=== PATIENT | female | born 1980 | race Caucasian/White ===

== ENCOUNTER 2016-12-14 19:54 | Emergency (ER) | payer MEDICAID ==
[~2016-12-14] VITALS: Ht 157.5 cm; Wt 77.0 kg
[~2016-12-14 19:54] MED LIST: CYCL-319 PO; IBUP800T25 PO; NAPR-260 PO; ULT50 PO
[2016-12-14 20:03] VITALS: Ht 157.5 cm; Wt 77.0 kg
[2016-12-14] MEDS ORDERED: SOD CHLORIDE 0.9% 1,000 ML IV STA (21:06)
[2016-12-14] MEDS ORDERED: ONDANSETRON 4 MG INJ IV STA (21:06)
[2016-12-14 22:13] LABS: ADD UMIC NO; URINE BILIRUBIN (Dip) NEGATIVE (NEGATIVE); URINE BLOOD (Dip) NEGATIVE (NEGATIVE); URINE COLOR LT. YELLOW (YELLOW); URINE GLUCOSE (Dip) NEGATIVE (NEGATIVE); URINE KETONES (Dip) NEGATIVE (NEGATIVE); URINE LEUKOCYTE ESTERASE (Dip) NEGATIVE (NEGATIVE); URINE NITRITE (Dip) NEGATIVE (NEGATIVE); URINE TOTAL PROTEIN (Dip) NEGATIVE (NEGATIVE); URINE UROBILINOGEN (Dip) 0.2 E.U./dL (0.1-1.0)
[2016-12-14 22:14] LABS: POTASSIUM 3.8 mmol/L (3.5-5.1)
[2016-12-14 22:16] LABS: ALBUMIN/GLOBULIN RATIO 1.19; BILIRUBIN,INDIRECT 0.2 mg/dl (0-1.1); BILIRUBIN,TOTAL 0.2 mg/dl (0.2-1.3); CREATININE 0.77 mg/dl (0.44-1.00); TOTAL PROTEIN 9.2 g/dl (6.1-8.1)
[2016-12-14 22:17] LABS: CALCIUM 9.9 mg/dl (8.4-10.2)
--- NOTE | 2016-12-14 22:29 | RADRPT ---
PROCEDURE: CT Abdomen and Pelvis without contrast. CLINICAL INDICATION: Abdominal pain and vomiting for 2 days. TECHNIQUE: A CT scan of the abdomen and pelvis was performed without intravenous contrast. Puckett l and sagittal reformatted images were generated. Images were reviewed on a high-resolution PACS wor kstation. CTDIvol: 10.54 mGy. DLP: 594.00 mGy-cm. COMPARISON: None. FINDINGS: There is mild atelectasis in both lower lobes. There is a calcified granuloma in the left lung base. Evaluation of the abdominal and pelvic viscera is limited by the lack of oral and intravenous contra st. The liver is unremarkable. The gallbladder is normal in appearance. The common bile duct is not dila pam. The spleen is not enlarged. No pancreatic lesion is identified and there is no pancreatic ducta l dilatation. The adrenal glands are unremarkable. The kidneys are normal in size. There is no perinephric fat stranding. No hydronephrosis is seen. No urinary stone is identified. The small and large bowel are normal in caliber. There is no bowel wall thickening. The appendix is normal. The urinary bladder is unremarkable. The pelvic organs are within normal limits. No lymphadenopathy is identified. There is no ascites. No pneumoperitoneum is seen. There are no art erial calcifications. No suspicious osseous lesion is idenitified. 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 IMPRESSION: 1. No inflammation, mass, or lymphadenopathy. 2. Normal appendix. 3. No obstructive uropathy or urinary stone. 4. 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 RPTAT: HTAR .Usman Yee MD, Date Time Electronically viewed and signed by .Usman Yee MD, MD on 12/14/2016 22:29 .R/
[2016-12-14 22:53] LABS: BASOPHIL # 0.1 10^3/ul (0.0-0.1); BASOPHILS % 0.6 % (0.0-2.0); EOSINOPHILS # 0.1 10^3/ul (0.0-0.5); EOSINOPHILS % 0.7 % (0.0-7.0); HEMOGLOBIN 14.8 g/dl (12.0-16.0); LYMPHOCYTES # 2.1 10^3/ul (0.8-2.9); LYMPHOCYTES % 19.9 % (15.0-51.0); MEAN CORPUSCULAR HEMOGLOBIN 29.8 pg (29.0-33.0); MEAN CORPUSCULAR HGB CONC 33.7 g/dl (32.0-37.0); MEAN CORPUSCULAR VOLUME 88.3 fl (82.0-101.0); MEAN PLATELET VOLUME 9.4 fl (7.4-10.4); MONOCYTE # 0.4 10^3/ul (0.3-0.9); MONOCYTES % 3.8 % (0.0-11.0); PLATELET COUNT 309 10^3/UL (140-440); RED BLOOD COUNT 4.98 10^6/ul (4.20-5.40); RED CELL DISTRIBUTION WIDTH 12.4 % (11.5-14.5); UNCORRECTED WBC 10.6 10^3/ul (4.8-10.8); WHITE BLOOD COUNT 10.6 10^3/ul (4.8-10.8)
[2016-12-14 22:54] LABS: CONDITION 1
[2016-12-14] MEDS ORDERED: ONDA4TAB14 PO (22:58)
[2016-12-14] MEDS ORDERED: ACET325T33 PO (22:58)
--- NOTE | 2016-12-14 23:06 | ERD ---
ER Documentation Chief Complaint Date/Time DATE: 12/14/16 TIME: 23:03 Chief Complaint MENJIVAR, AP and vomiting X 2 days, baby ASA 1930. HPI This is a 36-year-old female presenting to the emergency room complaining of headache, left upper abdominal pain and vomiting for the past 2 days. Patient states that she has vomited 12 times. She denies any diarrhea. She does not remember her last menstrual period she states that her abdominal pain is 10 out of 10. She denies fevers. She took that a baby aspirin at 1930 ROS All systems reviewed and are negative except as per history of present illness. Medications Home Meds Active Scripts Acetaminophen* (Tylenol*) 325 Mg Tablet, 2 TAB PO Q6 Y for PAIN AND OR ELEVATED TEMP, #20 TAB Prov:MILLY MCARTHUR PA-C 12/14/16 Ondansetron (Ondansetron Odt) 4 Mg Tab.rapdis, 4 MG PO Q6H Y for NAUSEA AND/OR VOMITING, #20 TAB Prov:MILLY MCARTHUR PA-C 12/14/16 Cyclobenzaprine Hcl* (Cyclobenzaprine Hcl*) 10 Mg Tablet, 10 MG PO QHS, #5 TAB Prov:JOAQUIN OLIVER PA-C 11/04/16 Naproxen* (Naprosyn*) 500 Mg Tablet, 500 MG PO BID Y for PAIN AND/OR INFLAMMATION, #30 TAB Prov:JOAQUIN OLIVER PA-C 11/04/16 Tramadol HCl (Tramadol HCl) 50 Mg Tablet, 50 MG PO Q4 Y for PAIN, #20 TAB Prov:JOAQUIN OLIVER PA-C 11/04/16 Ibuprofen* (Motrin*) 800 Mg Tab, 800 MG PO Q6H Y for PAIN AND OR ELEVATED TEMP, #30 TAB Prov:ARYA CABALLERO NP 11/03/15 Ibuprofen* (Motrin*) 800 Mg Tab, 800 MG PO Q6H Y for PAIN AND OR ELEVATED TEMP, #30 TAB Prov:ARYA CABALLERO NP 10/11/15 Tramadol HCl (Tramadol HCl) 50 Mg Tab, 50 MG PO Q6 Y for PAIN, #20 TAB Prov:EDMAR MEJIA 04/29/15 Allergies Allergies: Coded Allergies: No Known Allergy (Unverified , 10/11/15) PMhx/Soc Medical and Surgical Hx: pt denies Medical Hx, pt denies Surgical Hx Hx Alcohol Use: No Hx Substance Use: No Hx Tobacco Use: No Smoking Status: Never smoker Physical Exam Vitals Vital Signs Date Time Temp Pulse Resp B/P Pulse Ox O2 Delivery O2 Flow Rate FiO2 12/14/16 20:03 97.8 67 14 132/76 99 Physical Exam GENERAL: well-developed/well-nourished, in no apparent distress, non-toxic appearing HENT: NC/AT, moist mucous membranes EYES: Conjunctiva normal NECK: Supple, no lymphadenopathy PULM: CTA bilaterally, no rales, rhonchi, or wheezing heard CV: Normal S1S2, RRR, good capillary refill GI: Soft, non-distended, tender to palpation left upper quadrant Normal bowel sounds, no masses or organomegaly felt on exam No gross peritonitis, no bruits Negative Rovsing, negative Esteban, negative McBurney's point, Negative CVAT BACK: No masses EXT: No clubbing, cyanosis, or edema NEURO: Alert and Orientated SKIN: Intact, normal turgor PSYCH: Normal mood and mentation Result Diagram: 12/14/16214312/14/162143 Results 24 hrs Laboratory Tests Test 12/14/16 21:40 12/14/16 21:44 Urine Bilirubin NEGATIVE Urine Clarity CLEAR Urine Color LT. YELLOW Urine Glucose NEGATIVE% Urine Hemoglobin NEGATIVE Urine Ketones NEGATIVE Urine Leukocyte Esterase NEGATIVE Urine Nitrite NEGATIVE Urine Specific Jensen <=1.005 Urine Total Protein NEGATIVE Urine Urobilinogen 0.2 E.U./dL Urine pH 6.0 Alanine Aminotransferase (ALT/SGPT) 32IU/L Albumin 5.0g/dl Albumin/Globulin Ratio 1.19 Alkaline Phosphatase 90IU/L Anion Gap 19 Aspartate Amino Transf (AST/SGOT) 29IU/L Basophils # 0.110^3/ul Basophils % 0.6% Blood Urea Nitrogen 13mg/dl Calcium Level 9.9mg/dl Carbon Dioxide Level 26mmol/L Chloride Level 103mmol/L Creatinine 0.77mg/dl Direct Bilirubin 0.00mg/dl Eosinophils # 0.110^3/ul Eosinophils % 0.7% Globulin 4.20g/dl Glucose Level 109mg/dl Hematocrit 44.0% Hemoglobin 14.8g/dl Indirect Bilirubin 0.2mg/dl Lipase 52U/L Lymphocytes # 2.110^3/ul Lymphocytes % 19.9% Mean Corpuscular Hemoglobin 29.8pg Mean Corpuscular Hemoglobin Concent 33.7g/dl Mean Corpuscular Volume 88.3fl Mean Platelet Volume 9.4fl Monocytes # 0.410^3/ul Monocytes % 3.8% Neutrophils # 8.010^3/ul Neutrophils % 75.0% Nucleated Red Blood Cells # 0.010^3/ul Nucleated Red Blood Cells % 0.0/100WBC Platelet Count 81020^3/UL Potassium Level 3.8mmol/L Red Blood Count 4.9810^6/ul Red Cell Distribution Width 12.4% Sodium Level 144mmol/L Total Bilirubin 0.2mg/dl Total Protein 9.2g/dl White Blood Count 10.610^3/ul Current Medications Medications (Trade) Dose Ordered Sig/Romeo Route PRN Reason Start Time Stop Time Status Last Admin Dose Admin Sodium Chloride (NS) 1,000 ml @ 1,000 mls/hr Q1H STAT IV 12/14/16 21:06 12/14/16 22:05 DC 12/14/16 21:47 Ondansetron HCl (Zofran Inj) 4 mg ONCE STAT IV 12/14/16 21:06 12/14/16 21:08 DC 12/14/16 21:47 Procedures/MDM This is a 36-year-old female presenting to the emergency room complaining of headache, abdominal pain and vomiting for the past 2 days which is likely due to viral gastroenteritis or food poisoning. I have a low suspicion for acute appendicitis, diverticulitis, small or large bowel obstruction, pancreatitis, or other acute abdomen conditions. IV access is established, patient was given 1 L fluids along with morphine and Zofran. I have reassessed patient and she was significantly better. CBC did not show any evidence of leukocytosis or anemia. CMP was unremarkable for any liver, renal or electrolyte abnormalities. A urinalysis was done did not show any evidence of a urinary tract infection. Lipase is unremarkable. Patient is remaining stable and neurovascular intact for discharge, a prescription for Zofran and naproxen was provided. Discussed return to ER for any worsening signs she does. Patient understands and agrees with this plan CT abd and pelvis without contrast: 1. No inflammation, mass, or lymphadenopathy. 2. Normal appendix. 3. No obstructive uropathy or urinary stone. 4. 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 Departure Diagnosis: Primary Impression: Abdominal pain Abdominal location: left upper quadrant Qualified Code: R10.12 - Left upper quadrant pain Additional Impression: Vomiting Vomiting type: unspecified Vomiting Intractability: unspecified Nausea presence: unspecified Qualified Code: R11.10 - Vomiting, intractability of vomiting not specified, presence of nausea not specified, unspecified vomiting type Condition: Stable Patient Instructions: Abdominal Pain, Diet, Vomiting Or Diarrhea [6Yr-Adult], Food Poisoning Or Gastroenteritis (6Y-Adult), Vomiting (6Y-Adult) Referrals: [facility] Usted se menjivar hecho un examen mdico de control que le indica que no est en parul condicin que requiera tratamiento urgente en el Departamento de Emergencia. Un estudio ms profundo y el tratamiento de giraldo condicin pueden esperar sin ningn riesgo hasta que usted sea atendida/o en el consultorio de giraldo mdico o parul cl katie. Es responsabilidad suya arreglar parul daysi para el seguimiento del nba. MANEJO DE CONDICIONES NO URGENTES EN EL FUTURO 1) Si usted tiene un mdico de atencin primaria: Usted debera llamar a giraldo mdico de atencin primaria antes de venir al departamento de emergencia. Despus de las horas de consultorio, giraldo doctor o giraldo asociado/a est disponible por telfono. El mdico o enfermero de kimberly en el servicio telefnico puede asesorarle por tracy medio para atender el problema, o nba contrario se puede programar parul daysi. 2) Si usted no tiene un mdico de atencin primaria: Llame al mdico o clnica de referencia que aparece abajo rosalinda las horas de consultorio para hacer parul daysi para que le vean. CLINICAS: [facility] [phone] [facility] [phone] [facility] [phone] [facility] [phone] [facility] [phone] [address] [address] [phone] Additional Instructions: Visite a giraldo darcy dobbs para un EXAMEN.Regrese a estas instalaciones si no se mejora melania esperbamos o melania le dijimos. [place] toda la medicina ashwin y melania se le indic. Regrese a estas instalaciones si no se mejora melania esperbamos o melania le dijimos. MILLY MCARTHUR PA-C Dec 14, 2016 23:06
== END 2016-12-14 23:24 | disposition home or self-care (01) ==
LOC: FTE 19:54
DX: R10.12 Left upper quadrant pain (principal); R11.10 Vomiting, unspecified
CPT/HCPCS: 36415; 74176; 80053; 81003; 83690; 85025; 96361; 96374; J2405; J7030; Z7502

== ENCOUNTER 2018-01-13 21:50 | Emergency (ER) | END 2018-01-14 04:43 | disposition home or self-care (01) ==

== ENCOUNTER 2018-06-13 | Outpatient (CLI) | END 2018-06-13 00:31 | disposition home or self-care (01) ==

== ENCOUNTER 2018-09-02 03:23 | Inpatient (IN) | END 2018-09-05 15:30 | disposition home or self-care (01) | DRG 787 ==

== ENCOUNTER 2018-10-05 17:18 | Emergency (ER) | END 2018-10-06 01:50 | disposition home or self-care (01) ==

== ENCOUNTER 2018-10-06 14:47 | Emergency (ER) | END 2018-10-06 17:36 | disposition home or self-care (01) ==

== ENCOUNTER 2019-06-09 00:29 | Inpatient (IN) | payer MEDICAID, OTHER ==
[~2019-06-09] VITALS: Ht 157.5 cm; Wt 84.0 kg
[2019-06-09] VITALS (33 sets, daily range): BP systolic 96–148; BP diastolic 53–86; PULSE 64–99; RESP 16–28; Ht 157.5 cm; Wt 84.0 kg
[~2019-06-09 00:29] MED LIST changes: +ACET-141 PO; -CYCL-319 PO; +DOCU-159 PO; +IBUP-1542 PO; +IBUP100T3 PO; -IBUP800T25 PO; -NAPR-260 PO; +PREN1TAB79 PO; -ULT50 PO
[2019-06-09] MEDS ORDERED: ONDANSETRON 4 MG INJ IV STA ×2 (00:54→04:17)
[2019-06-09] MEDS ORDERED: HYDROmorphONE 1 MG/ML SYG IV STA ×2 (00:54→04:17)
[2019-06-09] MEDS ORDERED: morphine 4 MG/ML VIAL IV STA ×2 (01:24→04:19)
[2019-06-09] MEDS ORDERED: SOD CHLORIDE 0.9% 1,000 ML IV SCH (03:06)
--- NOTE | 2019-06-09 03:15 | ERD ---
ER Documentation Chief Complaint Chief Complaint LUQ pain x 2 days, denies n/v/d/ HPI This is a 39-year-old female complains of diffuse pelvic pain, for the past 2 days. Pain is located mostly in the left and mid pelvis. The patient says she had a light menstrual cycle in the past 2 days. No hematuria dysuria no nausea vomiting diarrhea or fever chest pain. ROS All systems reviewed and are negative except as per history of present illness. Medications Home Meds Active Scripts Acetaminophen* (Acetaminophen*) 500 MG Extra Strength Tablet, 500 MG PO Q4H PRN for PAIN, #30 TAB Prov:LAURIE BRAVO DO 10/06/18 Ibuprofen* (Motrin*) 600 Mg Tab, 600 MG PO Q6H PRN for PAIN AND OR ELEVATED TEMP, #20 TAB Prov:LAURIE HUTCHINSON MD 10/06/18 Vit W-Ca,Fe,FA(<1 mg) ( Vitamins) 1 Each Tablet, 1 EACH PO DAILY, #30 TAB Prov:CHRISTA MCCABE 01/14/18 Reported Medications Ibuprofen* (Ibuprofen*) 100 Mg Tab.chew, 100 MG PO Q6 PRN for PAIN LEVEL 6-10, TAB.CHEW 10/05/18 Docusate Sodium* (Docusate Sodium*) 100 Mg Capsule, 100 MG PO BID, #60 CAP 10/05/18 Allergies Allergies: Coded Allergies: No Known Allergy (Unverified , 09/02/18) PMhx/Soc History of Surgery: Yes (c/section x1) Anesthesia Reaction: No Hx Neurological Disorder: No Hx Respiratory Disorders: No Hx Cardiac Disorders: No Hx Psychiatric Problems: No Hx Miscellaneous Medical Probl: No Hx Alcohol Use: No Hx Substance Use: No Hx Tobacco Use: No Smoking Status: Never smoker FmHx Family History: No coronary disease Physical Exam Vitals Vital Signs Date Temp Pulse Resp B/P (MAP) Pulse Ox O2 O2 Flow FiO2 Time Delivery Rate 06/09/19 68 16 107/74 98 Room Air 02:20 (85) 06/09/19 98.2 78 16 125/79 99 Room Air 00:57 (94) 06/09/19 98.7 72 16 135/74 99 00:33 (94) Physical Exam Const: Well-developed, well-nourished Head: Atraumatic, normocephalic Eyes: Normal Conjunctiva, PERRLA, EOMI, normal sclera, no nystagmus ENT: Normal External Ears, Nose and Mouth, moist mucus membranes. Neck: Full range of motion. No meningismus, no lymphadenopathy. Resp: Clear to auscultation bilaterally, no wheezing, rhonchi, rales Cardio: Regular rate and rhythm, no murmurs, S1 S2 present Abd: Soft, diffuse mild pelvic pain non distended. Normal bowel sounds, no guarding or rebound, no pulsitile abdominal masses or bruits Skin: No petechiae or rashes, no ecchymosis , no maculopapular rash Back: No midline or flank tenderness Ext: No cyanosis, or edema, FROM x 4, normal inspection, neurovascularly intact x 4 Neur: Awake and alert, STR 5/5 x 4, sensation intact x 4, no focal findings, cerebellum intact Psych: Normal Mood and Affect Result Diagram: 06/09/19 0125 06/09/19 0125 Results 24 hrs Laboratory Tests Test 06/09/19 01:00 06/09/19 01:10 06/09/19 01:12 06/09/19 01:25 Urine Color YELLOW Urine Clarity SLIGHTLY CLOUDY Urine pH 5.0 Urine Specific 1.029 [place] Urine Ketones NEGATIVE mg/dL Urine Nitrite NEGATIVE mg/dL Urine Bilirubin NEGATIVE mg/dL Urine NEGATIVE mg/dL Urobilinogen Urine Leukocyte NEGATIVE Jaquan/ul Esterase Urine Microscopic 0 /HPF RBC Urine Microscopic 0 /HPF WBC Urine Squamous FEW /HPF Epithelial Cells Urine Hemoglobin NEGATIVE mg/dL Urine Glucose NEGATIVE mg/dL Urine Total NEGATIVE mg/dl Protein POC Beta HCG, POSITIVE Qualitative Serum HCG, POSITIVE Qualitative White Blood Count 8.4 10^3/ul Red Blood Count 4.50 10^6/ul Hemoglobin 13.0 g/dl Hematocrit 39.3 % Mean Corpuscular 87.3 fl Volume Mean Corpuscular 28.9 pg Hemoglobin Mean Corpuscular 33.1 g/dl Hemoglobin Concen t Red Cell 13.1 % Distribution Width Platelet Count 321 10^3/UL Mean Platelet 10.9 fl Volume Immature 0.400 % Granulocytes % Neutrophils % 54.4 % Lymphocytes % 32.5 % Monocytes % 8.1 % Eosinophils % 3.8 % Basophils % 0.8 % Nucleated Red 0.0 /100WBC Blood Cells % Immature 0.030 10^3/ul Granulocytes # Neutrophils # 4.6 10^3/ul Lymphocytes # 2.7 10^3/ul Monocytes # 0.7 10^3/ul Eosinophils # 0.3 10^3/ul Basophils # 0.1 10^3/ul Nucleated Red 0.0 10^3/ul Blood Cells # Sodium Level 142 mmol/L Potassium Level 3.8 mmol/L Chloride Level 107 mmol/L Carbon Dioxide 24 mmol/L Level Anion Gap 11 Blood Urea 16 mg/dl Nitrogen Creatinine 0.70 mg/dl Est Glomerular > 60 mL/min Filtrat Rate mL/min Glucose Level 110 mg/dl Calcium Level 9.6 mg/dl Total Bilirubin 0.3 mg/dl Direct Bilirubin 0.00 mg/dl Indirect 0.3 mg/dl Bilirubin Aspartate Amino 33 IU/L Transf (AST/SGOT) Alanine 42 IU/L Aminotransferase (ALT/SGPT) Alkaline 125 IU/L Phosphatase Total Protein 7.5 g/dl Albumin 4.3 g/dl Globulin 3.20 g/dl Albumin/Globulin 1.34 Ratio Beta HCG, 3997.7 mIU/ml Quantitative Current Medications Medications Dose Sig/Romeo Start Time Status Last (Trade) Ordered Route PRN Stop Time Admin Dose Reason Admin 1 mg ONCE STAT 06/09/19 Cancel Hydromorphone IV 00:54 HCl 06/09/19 00:55 (Dilaudid) Ondansetron 4 mg ONCE STAT 06/09/19 DC 06/09/19 HCl (Zofran IV 00:54 01:28 Inj) 06/09/19 00:57 Morphine 4 mg ONCE STAT 06/09/19 DC 06/09/19 Sulfate IV 01:24 01:28 (morphine) 06/09/19 01:25 Procedures/[place] [id number] Radiology Main Line: [phone] DIAGNOSTIC IMAGING REPORT Patient: TE RICK : 1980 Age: 39 Sex: F MR #: [id number] DOS: 06/09/19 0000 Ordering MD: JAE DALE DO Location: E/R Room/Bed: PROCEDURE: US OB < 14 weeks. CLINICAL INDICATION: Vaginal bleeding TECHNIQUE: Multiple sonographic images of the pelvis were obtained. The images were reviewed on a PACS workstation. COMPARISON: None FINDINGS: The uterus is retroverted and measures 6.1 x 3.5 x 5.4 cm. Endometrium measures 7 mm thickness and demonstrates normal echotexture. There is no visible intrauterine . The left ovary is not seen. The right ovary measures 2.2 x 1.1 x 1.0 cm. There is a complex lesion within the right adnexa which measures 2.2 x 2.1 cm, consistent with a live ectopic . Gestational sac with mean diameter 1.1 cm, visible yolk sac and pole, crown-rump length 2.1 mm. Cardiac activity is present, measured heart rate 71 beats per minute. No associated adnexal or pelvic free fluid. IMPRESSION: 1. Live ectopic with visible yolk sac and pole, size corresponding to an estimated age of 5 weeks 5 days. No associated pelvic free fluid. 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 2. No visible intrauterine . Uterus and right ovary are otherwise unremarkable. Left ovary not seen. Results called to Dr. Dale at 2:50 am on 06/09/2019. RPTAT: HJBB Physician Zari Date Time Electronically viewed and signed by Physician Zari on 06/09/2019 02:53 xB/ CC: JAE DALE DO [id number] . Patient has a stable ectopic . Will admit to Dr. Solo of OB GEN. I discussed the case with her Departure Diagnosis: Primary Impression: Ectopic Location of ectopic : tubal Intrauterine status: without intrauterine Laterality: right Qualified Codes: O00.101 - Right tubal without intrauterine Condition: Stable JAE DALE DO Jun 09, 2019 03:15
[2019-06-09] MEDS ORDERED: ONDANSETRON 4 MG INJ IV PRN ×2 (03:30→05:30)
[2019-06-09] MEDS ORDERED: ACETAMINOPHEN 325 MG TAB PO PRN ×2 (03:30→07:00)
--- NOTE | 2019-06-09 04:16 | CONS ---
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 she stated she had period April 22 and May 19 for 3days even though she was on breast feeding. U/S revealed live on right adnexa 2.2x2.1cm mass with sac of 1.1cm without free fluid in the cul de sac. admitted for exp lap and right salphingectomy. and patient was informed necessity of surgical intervention and patient consented for surgical procedure. lower abdominal pain Constitutional: no complaints, improved Eyes: no complaints ENT: no complaints Respiratory: no complaints Cardiovascular: no complaints Gastrointestinal: no complaints, pain Genitourinary: no complaints Musculoskeletal: no complaints, back pain, bone/joint pain, neck pain, restric pam range of motion, swelling, other Skin: no complaints Neurologic: no complaints Endocrine: no complaints Lymphatic: no complaints Psychological: no complaints Immunologic: no complaints Past Medical History Medical History: no pertinent history Home Meds Active Scripts Acetaminophen* (Acetaminophen*) 500 MG Extra Strength Tablet, 500 MG PO Q4H PRN for PAIN, #30 TAB Prov:LAURIE BRAVO DO 10/06/18 Ibuprofen* (Motrin*) 600 Mg Tab, 600 MG PO Q6H PRN for PAIN AND OR ELEVATED TEMP, #20 TAB Prov:LAURIE HUTCHINSON MD 10/06/18 Vit W-Ca,Fe,FA(<1 mg) ( Vitamins) 1 Each Tablet, 1 EACH PO DAILY, #30 TAB Prov:CHRISTA MCCABE 01/14/18 Reported Medications Ibuprofen* (Ibuprofen*) 100 Mg Tab.chew, 100 MG PO Q6 PRN for PAIN LEVEL 6-10, TAB.CHEW 10/05/18 Docusate Sodium* (Docusate Sodium*) 100 Mg Capsule, 100 MG PO BID, #60 CAP 10/05/18 Medications Current Medications Sodium Chloride 1,000 ml @ 80 mls/hr [id number] IV ; Start 06/09/19 at 03:06; Stop 06/09/19 at 15:35 Ondansetron HCl (Zofran Inj) 4 mg ER BRIDGE PRN IV NAUSEA/VOMITING; Start 06/09/19 at 03:30; Stop 06/10/19 at 03:29 Acetaminophen (Tylenol Tab) 650 mg ER BRIDGE PRN PO .MILD PAIN 1-3 OR TEMP; Start 06/09/19 at 03:30; Stop 06/10/19 at 03:29 Allergies: Coded Allergies: No Known Allergy (Unverified , 09/02/18) Past Surgical History x2 X1 c/s for brreech presentation Family History Significant Family History: no pertinent family hx Social History Alcohol Use: none Smoking Status: Never smoker Drug Use: none Exam/Review of Systems Exam Vitals Vital Signs Date Temp Pulse Resp B/P (MAP) Pulse Ox O2 O2 Flow FiO2 Time Delivery Rate 06/09/19 68 16 107/74 98 Room Air 02:20 (85) 06/09/19 98.2 00:57 Constitutional: alert, oriented, well developed Psych: no complaints, nl mood/affect Head: normocephalic, atraumatic Eyes: nl conjunctiva, EOMI, nl lids, nl sclera, PERRL ENMT: nl external ears & nose, nl lips & teeth, nl nasal mucosa & septum Neck: supple, non-tender Respiratory: clear to auscultation, normal air movement Gastrointestinal: soft, tender (on lower abdomen) Genitourinary - Female: other (u/s showes rt adnexal hebert G.S) Neurological: ELECTRIC CAR 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 II-XII intact, nl mental status, nl speech, nl strength Skin: nl turgor; No rash or lesions Results Result Diagram: 06/09/19 0125 06/09/19 0125 Results 24hrs Laboratory Tests Test 06/09/19 01:00 06/09/19 01:10 06/09/19 01:12 06/09/19 01:25 Urine Color YELLOW Urine Clarity SLIGHTLY CLOUDY A Urine pH 5.0 Urine Specific 1.029 [place] Urine Ketones NEGATIVE Urine Nitrite NEGATIVE Urine Bilirubin NEGATIVE Urine NEGATIVE Urobilinogen Urine Leukocyte NEGATIVE Esterase Urine Microscopic 0 RBC Urine Microscopic 0 WBC Urine Squamous FEW Epithelial Cells Urine Hemoglobin NEGATIVE Urine Glucose NEGATIVE Urine Total NEGATIVE Protein POC Beta HCG, POSITIVE H Qualitative Serum HCG, POSITIVE Qualitative White Blood Count 8.4 # Red Blood Count 4.50 Hemoglobin 13.0 Hematocrit 39.3 Mean Corpuscular 87.3 Volume Mean Corpuscular 28.9 L Hemoglobin Mean Corpuscular 33.1 Hemoglobin Concen t Red Cell 13.1 Distribution Width Platelet Count 321 Mean Platelet 10.9 H Volume Immature 0.400 Granulocytes % Neutrophils % 54.4 Lymphocytes % 32.5 Monocytes % 8.1 Eosinophils % 3.8 Basophils % 0.8 Nucleated Red 0.0 Blood Cells % Immature 0.030 Granulocytes # Neutrophils # 4.6 Lymphocytes # 2.7 Monocytes # 0.7 Eosinophils # 0.3 Basophils # 0.1 Nucleated Red 0.0 Blood Cells # Sodium Level 142 Potassium Level 3.8 Chloride Level 107 Carbon Dioxide 24 Level Anion Gap 11 Blood Urea 16 Nitrogen Creatinine 0.70 Est Glomerular > 60 Filtrat Rate mL/min Glucose Level 110 Calcium Level 9.6 Total Bilirubin 0.3 Direct Bilirubin 0.00 Indirect 0.3 Bilirubin Aspartate Amino 33 Transf (AST/SGOT) Alanine 42 Aminotransferase (ALT/SGPT) Alkaline 125 H Phosphatase Total Protein 7.5 Albumin 4.3 Globulin 3.20 Albumin/Globulin 1.34 Ratio Beta HCG, 3997.7 Quantitative Medications Medication Current Medications Sodium Chloride 1,000 ml @ 80 mls/hr [id number] IV ; Start 06/09/19 at 03:06; Stop 06/09/19 at 15:35 Ondansetron HCl (Zofran Inj) 4 mg ER BRIDGE PRN IV NAUSEA/VOMITING; Start 06/09/19 at 03:30; Stop 06/10/19 at 03:29 Acetaminophen (Tylenol Tab) 650 mg ER BRIDGE PRN PO .MILD PAIN 1-3 OR TEMP; Start 06/09/19 at 03:30; Stop 06/10/19 at 03:29 JOHAN CARRASQUILLO MD Jun 09, 2019 04:08
[2019-06-09] MEDS ORDERED: CEFAZOLIN 1 GM INJ ONE ×2 (05:00→05:46)
--- NOTE | 2019-06-09 05:07 | PREAC ---
Date/Time of Note Date/Time of Note DATE: 06/09/19 TIME: 05:06 Anesthesia Eval and Record Evaluation Time Pre-Procedure Interview DATE: 06/09/19 TIME: 05:06 Age 39 Sex female NPO: 8 hrs Preoperative diagnosis ectopic Planned procedure laparotomy Past Medical History Past Medical History: None GI: Obesity Surgery & Anesthesia Issues No known issue Meds Anticoagulation: No Beta Tan within 24 hr: No Reason Beta Tan not given: Pt. not on B-Tan Active Scripts Acetaminophen* (Acetaminophen*) 500 MG Extra Strength Tablet, 500 MG PO Q4H PRN for PAIN, #30 TAB Prov:LAURIE BRAVO DO 10/06/18 Ibuprofen* (Motrin*) 600 Mg Tab, 600 MG PO Q6H PRN for PAIN AND OR ELEVATED TEMP, #20 TAB Prov:LAURIE HUTCHINSON MD 10/06/18 Vit W-Ca,Fe,FA(<1 mg) ( Vitamins) 1 Each Tablet, 1 EACH PO DAILY, #30 TAB Prov:CHRISTA MCCABE 01/14/18 Reported Medications Ibuprofen* (Ibuprofen*) 100 Mg Tab.chew, 100 MG PO Q6 PRN for PAIN LEVEL 6-10, TAB.CHEW 10/05/18 Docusate Sodium* (Docusate Sodium*) 100 Mg Capsule, 100 MG PO BID, #60 CAP 10/05/18 Current Medications Sodium Chloride 1,000 ml @ 80 mls/hr [id number] IV ; Start 06/09/19 at 03:06; Stop 06/09/19 at 15:35 Ondansetron HCl (Zofran Inj) 4 mg ER BRIDGE PRN IV NAUSEA/VOMITING; Start 06/09/19 at 03:30; Stop 06/10/19 at 03:29 Acetaminophen (Tylenol Tab) 650 mg ER BRIDGE PRN PO .MILD PAIN 1-3 OR TEMP; Start 06/09/19 at 03:30; Stop 06/10/19 at 03:29 Meds reviewed: Yes Allergies Coded Allergies: No Known Allergy (Unverified , 09/02/18) Allergies Reviewed: Yes Labs/Studies Labs Reviewed: Reviewed by anesthesiologist Result Diagram: 06/09/19 0125 06/09/19 0125 Laboratory Tests 06/09/19 01:25 Blood Bank Test 06/09/19 01:25 Blood Type O POSITIVE test: Positive Pre-procedure Exam Last vitals Vital Signs Date Temp Pulse Resp B/P (MAP) Pulse Ox O2 O2 Flow FiO2 Time Delivery Rate 06/09/19 97.9 70 16 125/79 100 Room Air 04:33 (94) Airway: Adequate mouth opening, Adequate thyromental dist Mallampati: Mallampati II Teeth: Normal Lung: Normal Heart: Normal ASA Physical Status ASA physical status: 2 Emergency: E Planned Anesthetic General/MAC: ETT Nerve block: TAP (bilateral) Pre-operative Attestations Prior to commencing anesthesia and surgery, the patient was re-evaluated, there was verification of: *The patient's identity *The results of appropriate recent lab work and preoperative vital signs *The above evaluation not changing prior to induction *Anesthetic plan, risk benefits, alternative and complications discussed with patient/family; questions answered; patient/family understands, accepts and wishes to proceed. STELLA LYNN Jun 09, 2019 05:07
[2019-06-09] MEDS ORDERED: FENTAnyl 50 MCG/ML VIAL ONE (05:12)
[2019-06-09] MEDS ORDERED: ROPIVACAINE 0.5 % 30 ML VIAL ONE (05:12)
[2019-06-09] MEDS ORDERED: FENTAnyl 50 MCG/ML VIAL IV PRN ×2 (05:30)
[2019-06-09] MEDS ORDERED: METOCLOPRAMIDE 10 MG INJ IV PRN (05:30)
[2019-06-09] MEDS ORDERED: MEPERIDINE 25 MG INJ IV PRN (05:30)
[2019-06-09] MEDS ORDERED: ALBUTEROL 0.083% (NEB) 2.5 MG/3 ML AMP HHN PRN (05:30)
[2019-06-09] MEDS ORDERED: HYDROmorphONE 1 MG/5 ML IV SYRINGE IV PRN ×3 (05:30)
[2019-06-09] MEDS ORDERED: DIPHENHYDRAMINE 50 MG INJ IV PRN (05:30)
[2019-06-09] MEDS ORDERED: SUGAMMADEX SODIUM 200 MG/2 ML VIAL IV ONE (05:46)
[2019-06-09] MEDS ORDERED: SUCCINYLCHOLINE CHLORIDE 100 MG/5 ML SYG IV ONE (05:46)
[2019-06-09] MEDS ORDERED: PROPOFOL 20 ML ONE (05:46)
[2019-06-09] MEDS ORDERED: LIDOCAINE 100 MG SYRINGE ONE (05:46)
[2019-06-09] MEDS ORDERED: ROCURONIUM 50 MG INJ ONE (05:46)
[2019-06-09] MEDS ORDERED: ONDANSETRON IV PRN (07:00)
[2019-06-09] MEDS ORDERED: HYDROCODONE/APAP (5/325) TAB PO PRN (07:00)
[2019-06-09] MEDS ORDERED: SOD CHLORIDE 0.9% IV PRN (07:00)
--- NOTE | 2019-06-09 07:09 | SIPON ---
Date/Time of Note Date/Time of Note DATE: 06/09/19 TIME: 07:06 Operative Report Preoperative Diagnosis Rt ectopic Postoperative Diagnosis left ectopic hemoperitoneum Operation/Procedure Performed exp lap left salphingectomy Surgeon see signature line special ed assistant YESSY mcdonough Anesthesia: general Estimated blood loss: 10 - 50 ml's Transfusion Required none Specimen left follopian tube piece of poc Grafts/Implants none Complications none JOHAN CARRASQUILLO MD Jun 09, 2019 07:09
[2019-06-09] MEDS: LACTATED RINGER'S 1,000 ML IV SCH ×2 (08:45→18:37)
[2019-06-09] MEDS: IBUPROFEN 600 MG TAB PO PRN ×2 (12:10→18:37)
[2019-06-10] MEDS: LACTATED RINGER'S 1,000 ML IV SCH ×3 (02:58→15:31)
[2019-06-10 04:13] VITALS: BP 120/67; PULSE 64; RESP 18
[2019-06-10] MEDS: IBUPROFEN 600 MG TAB PO PRN ×2 (04:45→20:49)
[2019-06-10 07:57] VITALS: BP 119/62; PULSE 78; RESP 20
[2019-06-10 17:31] VITALS: BP 121/64; PULSE 82; RESP 19
--- NOTE | 2019-06-10 18:31 | PAC ---
Date/Time of Note Date/Time of Note DATE: 06/10/19 TIME: 18:31 Post-Anesthesia Notes Post-Anesthesia Note Last documented vital signs Vital Signs Date Temp Pulse Resp B/P (MAP) Pulse Ox O2 O2 Flow FiO2 Time Delivery Rate 06/10/19 97.9 82 19 121/64 98 17:31 (83) 06/10/19 Room Air 04:13 06/09/19 2.0 23:52 Activity: WNL Respiratory function: WNL Cardiovascular function: WNL Mental status: Baseline Pain reasonably controlled: Yes Hydration appropriate: Yes Nausea/Vomiting absent: Yes STELLA LYNN Jun 10, 2019 18:31
--- NOTE | 2019-06-10 18:55 | OPR ---
DATE OF OPERATION: 06/09/2019 PREOPERATIVE DIAGNOSIS: Right ectopic , unruptured. POSTOPERATIVE DIAGNOSIS: Left tubal , ampullary and hemoperitoneum. PROCEDURE: Exploratory lap and left salpingectomy. ANESTHESIA: General. ANESTHESIOLOGIST: Dr. Bull ESTIMATED BLOOD LOSS: Less than 50 mL. SURGEON: Marcella Solo MD PROCEDURE: Under the proper induction of general anesthesia, the patient was placed in frog position . Ahn catheter was introduced under sterile condition and repositioned to supine. Abdominal wall was prepped and draped in usual aseptic manner. A transverse incision was made on the same previous incision and cut through layer by layer until reaching the fascia, which was incised in the length of the incision. Fascial flap was created and 2 rectus muscles split and peritoneal cavity was entered . A small Aaron was introduced into the abdominal cavity. There was some blood noted, a small amou nt, and the right fallopian tube was checked, which was intact. The left fallopian tube, which was c hecked. The ultrasound shows the right side, but instead, the left fallopian tube was in th e tube in the ampullary portion. This was grasped with a Beena and the mesosalpinx and the tube wa s clamped with Pean forceps, and the tube was removed, and the pedicle was closed with 0 chr omic catgut. The pedicle was doubly tied with 0 chromic catgut. No bleeder noted. All the blood fr om the abdominal cavity was removed and the sponge count correct and parietal peritoneum was closed w ith 0 chromic catgut. Muscle closed with 0 chromic catgut in continuous manner. The fascia closed w ith #1 Vicryl in continuous manner. The subcutaneous tissue irrigated. This layer was approximated with a 2-0 plain and the skin closed with 3-0 Monocryl in subcuticular manner. A Steri-Strip applied . A pressure dressing applied. Estimated blood loss less than 50 mL. The patient withstood procedu re and was sent to the recovery room in stable condition. Dictated By: MARCELLA JOHNSON/JAMESON Conf#: [id number] DID#: [id number]
[2019-06-10 20:00] VITALS: BP 116/70; PULSE 83; RESP 18
--- NOTE | 2019-06-10 22:42 | QN ---
Documentation Comment POD #1 Pt had a minilap with a left salpingectomy yesterday AM for a ruptured ectopic . Pt is passing flatus but she reports that she feels like it is not all coming out. She is still on a clear liquid diet. She reports a lot of neck pain bilaterally. T=98.4 BP 118/70 Neck: the neck muscles are specifically tender and tight when massaged. R=L. Abdomen soft, appropriately tender, non-distended. Dressing is clean, dry and intact. Ext: NT, no edema. P: D/c IV. Simethicone 160 p.o. x 1. Flexeril 10 mg p.o. x 1. D/c dressing in the AM. Advance to a regular diet. Plan d/c in the AM. PRAVIN PORTER MD Jun 10, 2019 22:42
[2019-06-10] MEDS ORDERED: CYCLOBENZAPRINE 10 MG TAB PO ONE (23:00)
[2019-06-11 02:41] VITALS: BP 98/55; PULSE 63; RESP 18
[2019-06-11 07:33] VITALS: BP 112/69; PULSE 68; RESP 17
[2019-06-11] MEDS ORDERED: CYCLOBENZAPRINE 10 MG TAB PO ONE (08:30)
[2019-06-11] MEDS: LACTATED RINGER'S 1,000 ML IV SCH (08:58)
--- NOTE | 2019-06-11 10:39 | QN ---
Documentation Comment POD#2 is stable afebrile No VB +Flatus +voids Vs stable Gen NAD Abd soft NT ND Incision intact Genitalia No blood at perineum --->Discharge with Precautions --->Questions answered NANCY JUÁREZ M.D. Jun 11, 2019 10:39
[2019-06-11] MEDS: IBUPROFEN 600 MG TAB PO PRN (14:40)
--- NOTE | 2019-06-18 07:19 | DS ---
Date/Time of Note Date/Time of Note DATE: 06/18/19 TIME: 07:19 Discharge Summary Admission/Discharge Info Admit Date/Time Jun 09, 2019 at 03:12 Discharge Date/Time Jun 11, 2019 at 14:32 Discharge Diagnosis Left fallopian tube Ectopic Patient Condition: Good Hospital Course uneventful Home Meds Discontinued Reported Medications Ibuprofen* (Ibuprofen*) 100 Mg Tab.chew, 100 MG PO Q6 PRN for PAIN LEVEL 6-10, TAB.CHEW 10/05/18 Docusate Sodium* (Docusate Sodium*) 100 Mg Capsule, 100 MG PO BID, #60 CAP 10/05/18 Discontinued Scripts Acetaminophen* (Acetaminophen*) 500 MG Extra Strength Tablet, 500 MG PO Q4H PRN for PAIN, #30 TAB Prov:LAURIE BRAVO DO 10/06/18 Ibuprofen* (Motrin*) 600 Mg Tab, 600 MG PO Q6H PRN for PAIN AND OR ELEVATED TEMP, #20 TAB Prov:LAURIE HUTCHINSON MD 10/06/18 Vit W-Ca,Fe,FA(<1 mg) ( Vitamins) 1 Each Tablet, 1 EACH PO DAILY, #30 TAB Prov:CHRISTA MCCABE 01/14/18 [facility] M.[facility] Jun 18, 2019 07:19
== END 2019-06-11 14:32 | disposition home or self-care (01) | DRG 819 ==
LOC: E/R 00:29 → REC 03:12 → CANRESERV 03:40 → MS1 08:26
PROVIDERS: ADMIT Obstetrics & Gynecology; ATTEND Obstetrics & Gynecology
PROC: 0UB60ZZ Excision of Left Fallopian Tube, Open Approach (ICD-10-PCS; 2019-06-09)
PROC: 10T20ZZ Resection of Products of Conception, Ectopic, Open Approach (ICD-10-PCS; principal; 2019-06-09 05:00)
DX: O00.102 Left tubal pregnancy without intrauterine pregnancy (principal); E66.9 Obesity, unspecified; Z68.33 Body mass index [BMI] 33.0-33.9, adult; Z3A.01 Less than 8 weeks gestation of pregnancy
CPT/HCPCS: 36415; 76801; 76817; 80053; 81001; 81003; 81025; 84702; 84703; 85025; 86900; 86901; 88305; 96374; 96375; J0690; J1170; J1200; J2001; J2175; J2270; J2405; J2795; J3010; J7030; J7120

== ENCOUNTER 2019-07-06 18:06 | Emergency (ER) | payer MEDICAID ==
[~2019-07-06] VITALS: Ht 162.6 cm; Wt 83.0 kg
[~2019-07-06 18:06] MED LIST changes: -ACET-141 PO; -DOCU-159 PO; -IBUP-1542 PO; +IBUP-1561 PO; -IBUP100T3 PO; -PREN1TAB79 PO
[2019-07-06 18:15] VITALS: Ht 162.6 cm; Wt 83.0 kg
[2019-07-06] MEDS ORDERED: morphine 2 MG INJ IV STA (18:53)
[2019-07-06] MEDS ORDERED: SOD CHLORIDE 0.9% 500 ML IV STA (18:53)
[2019-07-06] MEDS ORDERED: ONDANSETRON 4 MG INJ IV STA (18:53)
--- NOTE | 2019-07-06 18:57 | ERD ---
ER Documentation Chief Complaint Chief Complaint pelvic pain x 3 days denies bleeding HPI 39-year-old female, with history of exploratory lap and left salpingectomy on 06/09/2019, presents the emergency department, complaining of 3 days with pelvic pain, constant, dull, /10, associated with pressure, she denies vaginal bleeding no dysuria, no diarrhea or constipation. ROS All systems reviewed and are negative except as per history of present illness. Medications Home Meds Active Scripts Ibuprofen* (Motrin*) 400 Mg Tab, 400 MG PO Q8, #30 TAB Prov:MAUDE IGNACIO MD 07/06/19 Allergies Allergies: Coded Allergies: No Known Allergy (Unverified , 09/02/18) PMhx/Soc Medical and Surgical Hx: pt denies Medical Hx History of Surgery: No Anesthesia Reaction: No Hx Neurological Disorder: No Hx Respiratory Disorders: No Hx Cardiac Disorders: No Hx Psychiatric Problems: No Hx Miscellaneous Medical Probl: No Hx Alcohol Use: No Hx Substance Use: No Hx Tobacco Use: No Smoking Status: Never smoker FmHx Family History: No diabetes, No coronary disease Physical Exam Vitals Vital Signs Date Temp Pulse Resp B/P (MAP) Pulse Ox O2 O2 Flow FiO2 Time Delivery Rate 07/06/19 97.7 58 18 121/82 98 Room Air 21:38 (95) 07/06/19 98.6 70 16 125/72 98 18:15 (89) Physical Exam Const: No acute distress Head: Atraumatic Eyes: Normal Conjunctiva ENT: Normal External Ears, Nose and Mouth. Neck: Full range of motion. No meningismus. Resp: Clear to auscultation bilaterally Cardio: Regular rate and rhythm, no murmurs Abd: Soft, mild tenderness to deep palpation in the pelvic area but no definitive peritoneal signs. Normal bowel sounds Skin: No petechiae or rashes Back: No midline or flank tenderness Ext: No cyanosis, or edema Neur: Awake and alert Psych: Normal Mood and Affect Result Diagram: 07/06/19191307/06/191913 Results 24 hrs Laboratory Tests Test 07/06/19 19:14 07/06/19 19:33 White Blood Count 7.1 10^3/ul Red Blood Count 4.64 10^6/ul Hemoglobin 13.5 g/dl Hematocrit 41.9 % Mean Corpuscular Volume 90.3 fl Mean Corpuscular Hemoglobin 29.1 pg Mean Corpuscular Hemoglobin Concent 32.2 g/dl Red Cell Distribution Width 12.4 % Platelet Count 320 10^3/UL Mean Platelet Volume 10.4 fl Immature Granulocytes % 0.300 % Neutrophils % 54.1 % Lymphocytes % 32.9 % Monocytes % 7.9 % Eosinophils % 4.1 % Basophils % 0.7 % Nucleated Red Blood Cells % 0.0 /100WBC Immature Granulocytes # 0.020 10^3/ul Neutrophils # 3.8 10^3/ul Lymphocytes # 2.3 10^3/ul Monocytes # 0.6 10^3/ul Eosinophils # 0.3 10^3/ul Basophils # 0.1 10^3/ul Nucleated Red Blood Cells # 0.0 10^3/ul Urine Color YELLOW Urine Clarity CLEAR Urine pH 6.0 Urine Specific [place] 1.029 Urine Ketones NEGATIVE mg/dL Urine Nitrite NEGATIVE mg/dL Urine Bilirubin NEGATIVE mg/dL Urine Urobilinogen NEGATIVE mg/dL Urine Leukocyte Esterase NEGATIVE Jaquan/ul Urine Hemoglobin NEGATIVE mg/dL Urine Glucose NEGATIVE mg/dL Urine Total Protein NEGATIVE mg/dl Sodium Level 139 mmol/L Potassium Level 4.4 mmol/L Chloride Level 104 mmol/L Carbon Dioxide Level 26 mmol/L Anion Gap 9 Blood Urea Nitrogen 17 mg/dl Creatinine 0.75 mg/dl Est Glomerular Filtrat Rate mL/min > 60 mL/min Glucose Level 109 mg/dl Calcium Level 9.4 mg/dl Total Bilirubin 0.3 mg/dl Direct Bilirubin 0.00 mg/dl Indirect Bilirubin 0.3 mg/dl Aspartate Amino Transf (AST/SGOT) 40 IU/L Alanine Aminotransferase (ALT/SGPT) 63 IU/L Alkaline Phosphatase 123 IU/L Total Protein 8.0 g/dl Albumin 4.5 g/dl Globulin 3.50 g/dl Albumin/Globulin Ratio 1.28 Lipase 48 U/L POC Beta HCG, Qualitative NEGATIVE Current Medications Medications Dose Sig/Romeo Start Time Status Last (Trade) Ordered Route PRN Stop Time Admin Dose Reason Admin Sodium 500 ml @ Q1H STAT 07/06/19 DC 07/06/19 Chloride 500 mls/hr IV 18:53 19:24 07/06/19 19:52 Morphine 1 mg ONCE STAT 07/06/19 DC 07/06/19 Sulfate IV 18:53 19:24 (morphine) 07/06/19 18:58 Ondansetron 4 mg ONCE STAT 07/06/19 DC 07/06/19 HCl (Zofran IV 18:53 19:24 Inj) 07/06/19 18:58 IV Flush 10 ml STK-MED 07/06/19 DC 07/06/19 (NS 10 ml) ONCE .ROUTE 20:18 20:32 07/06/19 20:19 Sodium 100 ml @ ud STK-MED 07/06/19 DC 07/06/19 Chloride ONCE .ROUTE 20:18 20:32 07/06/19 20:19 Iohexol 150 ml STK-MED 07/06/19 DC 07/06/19 (Omnipaque ONCE .ROUTE 20: 20:32 300mg/ ml) 07/06/19 20:19 Patient: TE RICK : 1980 Age: 39 Sex: F MR #: [id number] DOS: 07/06/19 1853 Ordering MD: MAUDE IGNACIO MD [facility] Room/Bed: PROCEDURE: CT Abdomen and Pelvis with contrast. CLINICAL INDICATION: Right lower quadrant pain, history of laparoscopy for right ectopic 4 weeks ago TECHNIQUE: CT scan of the abdomen and pelvis with contrast was performed on a multi-detector high-resolution CT scanner. The patient was scanned following the uncomplicated intravenous administration of 100 cc of Omnipaque 300. Coronal and sagittal reformatted images were obtained from the axial source images. Images were reviewed on a high-resolution PACS workstation. The total exam CTDI equals 14 mGy and the total exam DLP equals 848 mGy-cm. DICOM images are available. 3-D reconstructions were notperformed. One or more of the following dose reduction techniques were utilized: 1.) Automated exposure control 2.) Adjustment of the mA +/- kV according to patient's size 3.) Use of iterative reconstruction technique. COMPARISON: None. FINDINGS: CT abdomen: Heart (where visible): Unremarkable. Lung bases: No evidence of pneumonia, mass, pleural effusion. Liver: The liver is enlarged measuring 21.1 cm in length, and is somewhat hypo attenuating.. No visible focal mass. Biliary ductal system: No evidence of significant dilatation. Gallbladder: No wall thickening, visible intraluminal stone, or pericholecystic inflammatory change. Pancreas: Unremarkable Stomach: No identifiable focal mass or gross wall thickening. Spleen: No gross splenomegaly. Abdominal colon: Normal in caliber and course. Abdominal small bowel: Normal in caliber, course, and mucosal pattern. Adrenal glands: No visible masses. Right Kidney: Normal in size and contour without focal mass or collecting system dilatation. Left kidney: Normal in size and contour without focal mass or collecting system dilatation. Abdominal aorta: Normal caliber. Lymph nodes: No significantly enlarged nodes. CT pelvis: Pelvic colon: Normal in caliber and course. No evidence of inflammatory change. Pelvic small bowel: Normal in caliber and course. Appendix: Identified. No evidence of inflammation. Urinary bladder: Normal in size and contour without visible wall thickening. Reproductive structures: The uterus is retroflexed. The uterus and adnexa are otherwise unremarkable. There is no free fluid in the pelvis. . Bony structures included in the scan: No clinically significant abnormalities. IMPRESSION: 1. Hepatomegaly and hepatic steatosis. 2. Otherwise unremarkable CT of the abdomen and pelvis with no evidence of bowel obstruction, bowel perforation, urinary tract stone, urinary tract obstruction, or focal inflammatory process. . Procedures/MDM Vital signs stable. Differential diagnosis considered include UTI, cystitis, , endometriosis, pelvic inflammatory disease, ruptured ovarian cyst, ectopic , appendicitis, kidney stone. Less likely malignancy or acute abdomen but is still a possibility. During the ED course the patient remained stable, no new complaints. Results and clinical impression discussed with the patient who agrees with management. The patient is stable to be treated outpatient and will be discharged home. Follow up with the primary care provider in the next 48h has been recommended. If symptoms persist, worsen or new symptoms develop, then patient should return to the ED immediately. Instructions explained and given directly by me to the patient with ackno wledgment and demonstrated understanding. Disclaimer: Inadvertent spelling and grammatical errors are likely due to EHR/dictation software use and do not reflect on the overall quality of patient care. Also, please note that the electronic time recorded on this note does not necessarily reflect the actual time of the patient encounter. Departure Diagnosis: Primary Impression: Acute pain in female pelvis Condition: Stable Additional Instructions: Muchas rula por [facility] para giraldo servicio. Esperamos que en giraldo visita a la luis alberto de emergencia giraldo problema medico haya sido solucionado y que se sienta mucho mejor. Para estar seguros que giraldo mejoria sigue en proceso, le pedimos el favor de hacer parul daysi de seguimiento medico con giraldo doctor primario en los proximos 2-4 thomas. Lleve con usted estos documentos y las medicinas recetadas. Si mariana sintomas empeoran, NO SE ESPERE, por favor regrese a luis alberto de emergencia INMEDIATAMENTE. En nba que usted no tenga un mdico de atencin primaria: Llame al mdico o clnica comunitaria de referencia que aparece abajo rosalinda las horas de consultorio para hacer parul daysi para que le vean. CLINICAS: [place] [id number] [phone] [facility] [phone] [facility] [phone] [address] [facility]. [facility] [phone] [id number] [facility]. [place] [address] [phone] [facility]. [phone] MAUDE EATON MD Jul 06, 2019 18:57
[2019-07-06] MEDS ORDERED: SOD CHLORIDE 0.9% 100 ML ONE (20:18)
[2019-07-06] MEDS ORDERED: IOHEXOL 300MG/ML 150 ML BTL ONE (20:18)
[2019-07-06 21:38] VITALS: BP 121/82; PULSE 58; RESP 18
== END 2019-07-06 21:39 | disposition home or self-care (01) ==
LOC: FTE 18:06
DX: R10.2 Pelvic and perineal pain (principal)
CPT/HCPCS: 36415; 74177; 80053; 81003; 81025; 83690; 85025; 96361; 96374; 96375; J2270; J2405; J7040; Q9967; Z7502; Z7610